=== PATIENT | male | born 1970 | race Two or more races ===

== ENCOUNTER 2019-10-02 16:10 | Emergency (ER) | payer MEDICARE, OTHER ==
[~2019-10-02] VITALS: Ht 185.4 cm; Wt 136.1 kg
[2019-10-02 16:50] VITALS: BP 142/92
--- NOTE | 2019-10-02 16:50 | NUR ---
ED Nurse Note: Patient walked into ED from home c/o sore throat and earache x 3 days. Patient denies n/v/d. Patient AxO x 4, no s/s of acute distress.
[2019-10-02] MEDS ORDERED: Omnipaque 350 100ml vial INJ PRN (17:00)
[2019-10-02] MEDS ORDERED: Bicillin LA 1.2MMU/2ML SYR IM ONE (17:00)
--- NOTE | 2019-10-02 17:27 | NUR ---
ED Nurse Note: 20 g IV started in right AC. Blood drawn and sent to lab. Consent for CT signed by patient.
[2019-10-02 17:49] LABS: BASOPHILS % (AUTO) 1.1 % (0.0-2.0); EOSINOPHILS % (AUTO) 1.4 % (0.0-3.0); HEMATOCRIT 49.2 % (42.0-52.0); HEMOGLOBIN 16.7 G/DL (14.2-18.0); LYMPHOCYTES % (AUTO) 25.9 % (20.0-45.0); MEAN CORPUSCULAR VOLUME 96 FL (80-99); NEUTROPHILS % (AUTO) 63.6 % (45.0-75.0); PLATELET COUNT 253 K/UL (150-450); RED BLOOD COUNT 5.12 M/UL (4.70-6.10); RED CELL DISTRIBUTION WIDTH 12.6 % (11.6-14.8); WHITE BLOOD COUNT 13.1 K/UL (4.8-10.8)
[2019-10-02 18:00] LABS: ANION GAP 13 mmol/L (5-15); BLOOD UREA NITROGEN 15 mg/dL (7-18); CALCIUM 9.6 MG/DL (8.5-10.1); CARBON DIOXIDE 25 MMOL/L (21-32); CHLORIDE 103 MMOL/L (98-107); CREATININE 0.9 MG/DL (0.55-1.30); POTASSIUM 3.3 MMOL/L (3.5-5.1); SODIUM 141 MMOL/L (136-145)
[2019-10-02 18:05] LABS: ALANINE AMINOTRANSFERASE 98 U/L (12-78); ALBUMIN 3.8 G/DL (3.4-5.0); ALBUMIN/GLOBULIN RATIO 0.7 (1.0-2.7); ALKALINE PHOSPHATASE 102 U/L (46-116); ASPARTATE AMINO TRANSFERASE 57 U/L (15-37); BILIRUBIN,TOTAL 0.6 MG/DL (0.2-1.0)
--- NOTE | 2019-10-02 19:47 | Diagnostic Imaging Report ---
EXAM: CT Angiography Neck With Intravenous Contrast CLINICAL HISTORY: ABSCESS. Mastoiditis. TECHNIQUE: Axial computed tomographic angiography images of the neck with intravenous contrast. CTDI is 58.6 mGy and DLP is 258.9 mGy-cm. One or more of the following dose reduction techniques were used: automated exposure control, adjustment of the mA and/or kV according to patient size, use of iterative reconstruction technique. MIP reconstructed images were created and reviewed. Coronal and sagittal reformatted images were created and reviewed. COMPARISON: No relevant prior studies available. FINDINGS: VASCULATURE: Right common carotid artery: Unremarkable. No significant stenosis. No dissection or occlusion. Right internal carotid artery: Unremarkable. Extracranial segment is patent with no significant stenosis. No dissection or occlusion. Right external carotid artery: Unremarkable. No occlusion. Right vertebral artery: Unremarkable. No significant stenosis. No dissection or occlusion. Left common carotid artery: Unremarkable. No significant stenosis. No dissection or occlusion. Left internal carotid artery: Unremarkable. Extracranial segment is patent with no significant stenosis. No dissection or occlusion. Left external carotid artery: Unremarkable. No occlusion. Left vertebral artery: Unremarkable. No significant stenosis. No dissection or occlusion. NECK: Bones/joints: No acute fracture. No dislocation. Soft tissues: Unremarkable as visualized. No mass. Mastoid air cells: Bilateral mastoid air cells, external auditory canals, internal and middle ear cavities are clear. Other findings: Moderate degenerative disc disease in the visualized spine. Orbits: Bilateral Staphyloma CAROTID STENOSIS REFERENCE USING NASCET CRITERIA: % ICA stenosis = (1 - narrowest ICA diameter/diameter of distal cervical ICA) x 100. Mild - <50% stenosis. Moderate - 50-69% stenosis. Severe - 70-94% stenosis. Near occlusion - 95-99% stenosis. Occluded - 100% stenosis. IMPRESSION: Bilateral mastoid air cells, external auditory canals, internal and middle ear cavities are clear. No abscess identified Bilateral carotid, subclavian, and vertebral arteries are patent.
--- NOTE | 2019-10-02 19:51 | Emergency Room Report ---
History of Present Illness General Chief Complaint: Earache Source: Patient Present Illness HPI 49-year-old male with history of hypertension and HIV currently controlled with medication here complaining of 2 days of right ear pain now spreading to right sided throat and obvious edema noted in anterior cervical lymphadenopathy in the right side. Rates the pain 10 out of 10 without radiation. Tragus is tender to palpation, denies fever and chills, cough and congestion, shortness of breath, abdominal pain, nausea, diarrhea, loss of taste or smell. Has not taken medication for symptom relief. Appears to be stable with stable vital signs. No pus drainage noted. Speaks in full sentences. Denies any hearing loss, dizziness and vertigo. Denies any tinnitus. No mastoid tenderness palpated however patient complains of pain around the mastoid area Allergies: Coded Allergies: No Known Allergies (Unverified , 10/02/19) COVID-19 Screening Contact w/high risk pt: No Recent Travel to affected area: No Experienced COVID-19 symptoms?: Yes COVID-19 symptoms experienced: Flu-Like Symptoms COVID-19 Testing performed CANE LOADER: No Patient History Past Medical History: see triage record Past Surgical History: none Pertinent Family History: none Immunizations: UTD Reviewed Nursing Documentation: PMH: Agreed; PSxH: Agreed Nursing Documentation-PMH Past Medical History: No History, Except For Hx Hypertension: Yes Review of Systems All Other Systems: negative except mentioned in HPI Physical Exam Vital Signs Date Time Temp Pulse Resp B/P (MAP) Pulse Ox O2 Delivery O2 Flow Rate FiO2 10/02/19 16:35 98.2 93 16 142/92 (109) 96 Room Air Sp02 EP Interpretation: reviewed, normal General Appearance: no apparent distress, alert, GCS 15, non-toxic Head: normocephalic, atraumatic Eyes: bilateral eye normal inspection, bilateral eye PERRL ENT: tonsillar swelling, other - Right TM bulging and tragus tender to palpation with anterior cervical lymphadenopathy and right-sided tonsillar swelling Neck: full range of motion, supple/symm/no masses, other - Right-sided anterior cervical lymphadenopathy Respiratory: chest non-tender, lungs clear, normal breath sounds, speaking full sentences Cardiovascular #1: regular rate, rhythm, no edema Cardiovascular #2: 2+ carotid (R), 2+ carotid (L) Gastrointestinal: normal bowel sounds, non tender, soft, non-distended, no guarding, no rebound Genitourinary: no CVA tenderness Musculoskeletal: back normal Neurologic: alert, motor strength/tone normal, oriented x3, sensory intact, responsive, speech normal Psychiatric: judgement/insight normal, memory normal, mood/affect normal, no suicidal/homicidal ideation Skin: no rash Lymphatic: adenopathy - Right-sided anterior cervical lymphadenopathy Medical Decision Making PA Attestation All my diagnosis and treatment plans were reviewed ad discussed with my supervising physician Dr. Veloz Diagnostic Impression: Primary Impression: Otitis media Additional Impression: Anterior cervical lymphadenopathy ER Course 49-year-old male with history of hypertension and HIV currently controlled with medication here complaining of 2 days of right ear pain now spreading to right sided throat and obvious edema noted in anterior cervical lymphadenopathy in the right side. Rates the pain 10 out of 10 without radiation. Tragus is tender to palpation, denies fever and chills, cough and congestion, shortness of breath, abdominal pain, nausea, diarrhea, loss of taste or smell. Has not taken medication for symptom relief. Appears to be stable with stable vital signs. No pus drainage noted. Speaks in full sentences. Denies any hearing loss, dizziness and vertigo. Denies any tinnitus. No mastoid tenderness palpated however patient complains of pain around the mastoid area Ddx considered but are not limited to: Otitis media, otitis externa, Mastoiditis , peritonsillar abscess Vital signs: are WNL, pt. is afebrile H&PE are most consistent with: Otitis media, anterior cervical lymphadenopathy ORDERS: CT neck soft tissue with contrast, CBC, CMP clindamycin, prednisone, Motrin ED INTERVENTIONS: Decadron, penicillin G, DISCHARGE: At this time pt. is stable for d/c to home. Will provide printed patient care instructions, and any necessary prescriptions. Care plan and follow up instructions have been discussed with the patient prior to discharge. Patient take medication as directed, also to be sent to ENT, if worsening symptoms return to the emergency room. At this time no signs of mastoiditis or peritonsillar abscess noted CT/MRI/US Diagnostic Results CT/MRI/US Diagnostic Results : Imaging Test Ordered: CT neck soft tissue with contrast Impression IMPRESSION: Bilateral mastoid air cells, external auditory canals, internal and middle ear cavities are clear. No abscess identified Bilateral carotid, subclavian, and vertebral arteries are patent. Last Vital Signs Date Time Temp Pulse Resp B/P (MAP) Pulse Ox O2 Delivery O2 Flow Rate FiO2 10/02/19 16:50 98.2 16 142/92 96 Room Air 10/02/19 16:35 93 Disposition: HOME, SELF-CARE Condition: Stable Scripts Ibuprofen* (MOTRIN*) 600 Mg Tablet 600 MG ORAL Q6H PRN for For Pain, #30 TAB 0 Refills Prov: Nelly Ortega 10/02/19 Prednisone* (PREDNISONE*) 20 Mg Tablet 40 MG ORAL DAILY for 5 Days, #10 TAB Prov: Nelly Ortega 10/02/19 Clindamycin Hcl* (CLINDAMYCIN HCL*) 150 Mg Capsule 300 MG ORAL FOUR TIMES A DAY for 7 Days, #28 CAP Prov: Nelly Ortega 10/02/19 Referrals: NON PHYSICIAN (PCP) Patient Instructions: Lymphadenopathy, Otitis Media, Adult, [id number] Additional Instructions: Take medication as directed, follow-up with your primary doctor, referral to ENT may be needed, if worsening symptoms return to the emergency room Nelly Ortega Oct 02, 2019 19:51
[2019-10-02] MEDS ORDERED: CLINDAMYCIN HC150 MG ORAL (19:53)
[2019-10-02] MEDS ORDERED: IBUPROFEN600 M1 ORAL (19:53)
[2019-10-02] MEDS ORDERED: PREDNISONE20 MG ORAL (19:53)
[2019-10-02 20:00] VITALS: BP 138/89
--- NOTE | 2019-10-02 20:00 | NUR ---
ER DISCHARGE NOTE: Patient is cleared to be discharged per ERMD, pt is aox4, on room air, with stable vital signs. pt was given dc and prescription instructions, pt was able to verbalize understanding, pt id band removed without complications. pt is able to ambulate with steady gait. pt took all belongings.
== END 2019-10-02 20:00 | disposition home or self-care (01) ==
LOC: EMR 16:30
DX: H66.91 Otitis media, unspecified, right ear (principal); R59.1 Generalized enlarged lymph nodes; I10 Essential (primary) hypertension; B20 Human immunodeficiency virus [HIV] disease
CPT/HCPCS: 36415; 70498; 80053; 85025; 96372; 96374; 99284; J0570; J1100; Q9967; J0561